=== PATIENT | female | born 1960 | race American Indian/Alaskan Native ===

== ENCOUNTER 2020-06-28 16:49 | Emergency (ER) | payer MEDICAID ==
[2020-06-28 17:23] VITALS: BP 116/81
== END 2020-06-28 20:55 | disposition home or self-care (01) ==
LOC: ED 16:49
DX: M62.838 Other muscle spasm (principal); Z98.890 Other specified postprocedural states; Z79.899 Other long term (current) drug therapy
CPT/HCPCS: 36415; 80053; 83735; 85025; 93005; 96372; 99284; J1885